=== PATIENT | female | born 1985 | race American Indian/Alaskan Native ===

== ENCOUNTER 2017-06-28 16:31 | Emergency (ER) | payer MEDICAID ==
[2017-06-28 16:40] VITALS: BP 143/73
[2017-06-28] MEDS ORDERED: FUL-GLO OP ONE (21:28)
[2017-06-28] MEDS ORDERED: TETRACAINE 0.5% OU ONE (21:30)
--- NOTE | 2017-06-28 22:07 | XRay Report ---
FINAL REPORT PROCEDURE: XR ORBITS 4+V TECHNIQUE: Four view orbits HISTORY: eye injury COMPARISON: No prior studies are available for comparison. FINDINGS: No fracture. No air-fluid level seen. If symptoms persists recommend CT scan IMPRESSION: No fracture or air-fluid level seen.
--- NOTE | 2017-06-28 22:07 | Emergency Department Report ---
Eye Injury/Foreign Body - HPI Duration: Today Eye Location: Left Severity: Moderate Tetanus Status: Up to Date Eye Symptoms: Eye Pain: Yes, Blurred Vision: Yes, Eye Redness: Yes, Grinding/ Hammering Metal: No, Used Eye Protection: No, Contact Lens Use: No, Recalls Injury: Yes, Photophobia: Yes Other History: Patient 31-year-old -[place] female presents for left eye pain blurred left eye vision s/p " my child struck me in the eye with a toy action figure accidentaly, pain described as burning itching with photobia and blurred vision there is no bleeding no swelling no headache ED Review of Systems ROS: Stated complaint: L EYE INJURY Other details as noted in HPI Constitutional: denies: chills, fever Eyes: eye pain, vision change (blurred left eye pain ). denies: eye discharge ENT: denies: ear pain, throat pain Respiratory: denies: cough, shortness of breath, wheezing Cardiovascular: denies: chest pain, palpitations Endocrine: no symptoms reported Gastrointestinal: denies: abdominal pain, nausea, diarrhea Genitourinary: denies: urgency, dysuria, discharge Musculoskeletal: denies: back pain, joint swelling, arthralgia Skin: denies: rash, lesions Neurological: denies: headache, weakness, paresthesias Psychiatric: denies: anxiety, depression Hematological/Lymphatic: denies: easy bleeding, easy bruising ED Past Medical Hx - Past Medical History Previous Medical History?: Yes Hx Arthritis: Yes Hx Asthma: Yes Additional medical history: anemia, Back pain, LILIANA - Surgical History Past Surgical History?: Yes Additional Surgical History: ovarian cyst removed. - Social History Smoking Status: Never Smoker Substance Use Type: Non Opiate Pain, Prescribed - Medications Home Medications: Home Medications Medication Instructions Recorded Confirmed Last Taken Type traMADol [Ultram] 50 mg PO Q4HR PRN #15 tablet 08/01/13 03/23/16 03/21/16 Rx 100mg Ketorolac [Toradol] 10 mg PO Q6H PRN #20 tablet 03/23/16 Unknown Rx Meloxicam [Mobic] 15 mg PO BID 03/23/16 03/23/16 03/20/16 History 15mg Methocarbamol [Robaxin TAB] 1,500 mg PO TID PRN #30 tab 03/23/16 Unknown Rx Cetirizine HCl [Zyrtec] 10 mg PO DAILY #30 tablet 06/28/17 Unknown Rx Ibuprofen 800 mg PO TID PRN #30 tablet 06/28/17 Unknown Rx Polymyxin B Sulf/Trimethoprim 1 - 2 drop OP Q4H #10 ml 06/28/17 Unknown Rx [Polytrim Eye Drops] Eye Injury Exam - Exam General: Vital signs noted. No distress. Alert and acting appropriately. ED Course Vital Signs 06/28/17 16:35 Temperature 98.6 F Pulse Rate 81 Respiratory 16 Rate Blood Pressure 143/73 O2 Sat by Pulse 99 Oximetry ED Medical Decision Making - Radiology Data no fracture - Medical Decision Making Patient states stuck in the high with plastic action figure 2-year-old today pain described as burning itching with minimal blurred vision the left there is no bleeding no swelling no ecchymosis globe was intact and vital signs PERRLA EOMI mild conjunctivitis exam tetracaine fluorescein Wood's lamp mild corneal abrasion to pupil on 2 mm IOP 16 mmHg via Bud-Pen . Visual acuity 20/40 left eye 20/40 right eye blurred vision resolved with sterile saline irrigation 10 mL plan Polytrim every 3-4 hours while awake Zyrtec by mouth ibuprofen by mouth follow up with ophthalmology patient will call tomorrow to set up appointment will return to ED if symptoms worsen patient verbalizes understanding and agreement with discharge plan patient DC'd home in stable condition at this time. Critical care attestation.: If time is entered above; I have spent that time in minutes in the direct care of this critically ill patient, excluding procedure time. ED Disposition Clinical Impression: Corneal abrasion Qualifiers: Encounter type: initial encounter Laterality: left Qualified Code(s): S05.02XA - Injury of conjunctiva and corneal abrasion without foreign body, left eye, initial encounter Conjunctivitis Qualifiers: Conjunctivitis type: acute Acute conjunctivitis type: unspecified Laterality: left Qualified Code(s): H10.32 - Unspecified acute conjunctivitis, left eye Disposition: DC-01 TO HOME OR SELFCARE Is pt being admited?: No Does the pt Need Aspirin: No Condition: Good Instructions: Corneal Abrasion (ED), Conjunctivitis (ED) Prescriptions: Cetirizine HCl [Zyrtec] 10 mg PO DAILY #30 tablet Ibuprofen 800 mg PO TID PRN #30 tablet PRN Reason: Pain Polymyxin B Sulf/Trimethoprim [Polytrim Eye Drops] 1 - 2 drop OP Q4H #10 ml Referrals: MARY LAWRENCE MD [Staff Physician] - 3-5 Days Forms: Work/School Release Form(ED) Time of Disposition: 22:15
[2017-06-28] MEDS ORDERED: TYLENOL ONE (22:30)
[2017-06-28] MEDS ORDERED: TYLENOL PO ONE (22:30)
--- NOTE | 2017-07-01 10:10 | Emergency Department Report ---
ED General Adult HPI - General Chief complaint: Eye Problems Stated complaint: L EYE INJURY Time Seen by Provider: 06/28/17 21:21 Source: patient, family, EMS Mode of arrival: Ambulatory Limitations: No Limitations - History of Present Illness Severity scale (0 -10): 0 - Related Data Home Medications Medication Instructions Recorded Confirmed Last Taken Meloxicam [Mobic] 15 mg PO BID 03/23/16 03/23/16 03/20/16 15mg Previous Rx's Medication Instructions Recorded Last Taken Type traMADol [Ultram] 50 mg PO Q4HR PRN #15 tablet 08/01/13 03/21/16 Rx 100mg Ketorolac [Toradol] 10 mg PO Q6H PRN #20 tablet 03/23/16 Unknown Rx Methocarbamol [Robaxin TAB] 1,500 mg PO TID PRN #30 tab 03/23/16 Unknown Rx Cetirizine HCl [Zyrtec] 10 mg PO DAILY #30 tablet 06/28/17 Unknown Rx Ibuprofen 800 mg PO TID PRN #30 tablet 06/28/17 Unknown Rx Polymyxin B Sulf/Trimethoprim 1 - 2 drop OP Q4H #10 ml 06/28/17 Unknown Rx [Polytrim Eye Drops] Allergies Allergy/AdvReac Type Severity Reaction Status Date / Time doxycycline Allergy Rash Verified 03/22/16 19:51 seafood Allergy Shortness Uncoded 06/28/17 16:40 of Breath ED Review of Systems ROS: Stated complaint: L EYE INJURY Other details as noted in HPI Constitutional: denies: chills, fever Eyes: eye pain, vision change (blurred left eye pain ). denies: eye discharge ENT: denies: ear pain, throat pain Respiratory: denies: cough, shortness of breath, wheezing Cardiovascular: denies: chest pain, palpitations Endocrine: no symptoms reported Gastrointestinal: denies: abdominal pain, nausea, diarrhea Genitourinary: denies: urgency, dysuria, discharge Musculoskeletal: denies: back pain, joint swelling, arthralgia Skin: denies: rash, lesions Neurological: denies: headache, weakness, paresthesias Psychiatric: denies: anxiety, depression Hematological/Lymphatic: denies: easy bleeding, easy bruising ED Past Medical Hx - Past Medical History Previous Medical History?: Yes Hx Arthritis: Yes Hx Asthma: Yes Additional medical history: anemia, Back pain, LILIANA - Surgical History Past Surgical History?: Yes Additional Surgical History: ovarian cyst removed. - Social History Smoking Status: Never Smoker Substance Use Type: Non Opiate Pain, Prescribed - Medications Home Medications: Home Medications Medication Instructions Recorded Confirmed Last Taken Type traMADol [Ultram] 50 mg PO Q4HR PRN #15 tablet 08/01/13 03/23/16 03/21/16 Rx 100mg Ketorolac [Toradol] 10 mg PO Q6H PRN #20 tablet 03/23/16 Unknown Rx Meloxicam [Mobic] 15 mg PO BID 03/23/16 03/23/16 03/20/16 History 15mg Methocarbamol [Robaxin TAB] 1,500 mg PO TID PRN #30 tab 03/23/16 Unknown Rx Cetirizine HCl [Zyrtec] 10 mg PO DAILY #30 tablet 06/28/17 Unknown Rx Ibuprofen 800 mg PO TID PRN #30 tablet 06/28/17 Unknown Rx Polymyxin B Sulf/Trimethoprim 1 - 2 drop OP Q4H #10 ml 06/28/17 Unknown Rx [Polytrim Eye Drops] ED Physical Exam - General Limitations: No Limitations General appearance: alert, in no apparent distress - Head Head exam: Present: atraumatic, normocephalic - Eye Eye exam: Present: PERRL, EOMI, conjunctival injection, periorbital swelling, periorbital tenderness - Expanded Eye Exam Expanded Eyelids: Erythema: Left, Swelling: Left Pupils: Regular, Round: Bilateral, Reactive: Bilateral Sclera/Conjunctival: Injection: Left Anterior chamber: Normal Inspection: Bilateral Posterior chamber: Deferred: Bilateral Visual acuity (R) = 20/: 40 Visual acuity (L) = 20/: 40 With correction: No IOP (R) in mmH IOP (L) in mmH IOP measured with: Tonopen - ENT ENT exam: Present: mucous membranes moist - Neck Neck exam: Present: normal inspection - Respiratory Respiratory exam: Present: normal lung sounds bilaterally. Absent: respiratory distress - Cardiovascular Cardiovascular Exam: Present: regular rate, normal rhythm. Absent: systolic murmur, diastolic murmur, rubs, gallop - GI/Abdominal GI/Abdominal exam: Present: soft, normal bowel sounds - Rectal Rectal exam: Present: deferred - Extremities Exam Extremities exam: Present: normal inspection - Back Exam Back exam: Present: normal inspection - Neurological Exam Neurological exam: Present: alert, oriented X3 - Psychiatric Psychiatric exam: Present: normal affect, normal mood - Skin Skin exam: Present: warm, dry, intact, normal color. Absent: rash ED Course Vital Signs 06/28/17 16:35 Temperature 98.6 F Pulse Rate 81 Respiratory 16 Rate Blood Pressure 143/73 O2 Sat by Pulse 99 Oximetry Critical care attestation.: If time is entered above; I have spent that time in minutes in the direct care of this critically ill patient, excluding procedure time. ED Disposition Clinical Impression: Corneal abrasion, Conjunctivitis Disposition: DC- TO HOME OR SELFCARE Condition: Good Instructions: Conjunctivitis (ED), Corneal Abrasion (ED) Prescriptions: Cetirizine HCl [Zyrtec] 10 mg PO DAILY #30 tablet Ibuprofen 800 mg PO TID PRN #30 tablet PRN Reason: Pain Polymyxin B Sulf/Trimethoprim [Polytrim Eye Drops] 1 - 2 drop OP Q4H #10 ml Referrals: MARY LAWRENCE MD [Staff Physician] - 3-5 Days Forms: Work/School Release Form(ED)
== END 2017-06-28 22:30 | disposition home or self-care (01) ==
LOC: ED 16:31
DX: S05.02XA Injury of conjunctiva and corneal abrasion without foreign body, left eye, initial encounter (principal); H10.32 Unspecified acute conjunctivitis, left eye; W22.8XXA Striking against or struck by other objects, initial encounter; Y93.89 Activity, other specified; Y92.89 Other specified places as the place of occurrence of the external cause; Y99.8 Other external cause status
CPT/HCPCS: 70200; 99284

== ENCOUNTER 2017-12-08 15:51 | Outpatient (CLI) | payer OTHER ==
--- NOTE | 2017-12-08 19:32 | XRay Report ---
FINAL REPORT PROCEDURE: Lumbar spine. TECHNIQUE: Three views. HISTORY: Back pain. COMPARISON: No prior studies are available for comparison. FINDINGS: The lumbar vertebrae have normal height and alignment. There are no fractures. There is no spondylolisthesis. The disc spaces are well maintained. The sacrum and sacroiliac joints appear normal. IMPRESSION: Normal study.
--- NOTE | 2017-12-09 00:09 | XRay Report ---
FINAL REPORT EXAM: XR HIP 2-3V RT HISTORY: hIP PAIN COMPARISON: None available. FINDINGS: Two views of the pelvis and right hip obtained. Pelvic ring is intact. Bilateral hip and SI joint spaces are preserved. No acute fracture dislocation. IMPRESSION: No acute bony abnormality.
== END 2017-12-08 15:52 | disposition home or self-care (01) ==
LOC: XRAY 15:51
PROVIDERS: ATTEND Internal Medicine
DX: Z02.71 Encounter for disability determination (principal); M25.551 Pain in right hip; M54.5 Low back pain; M19.90 Unspecified osteoarthritis, unspecified site; J45.909 Unspecified asthma, uncomplicated
CPT/HCPCS: 72100

== ENCOUNTER 2017-12-21 22:14 | Emergency (ER) | payer MEDICAID, OTHER ==
[2017-12-22 01:53] VITALS: BP 111/58
--- NOTE | 2017-12-22 05:07 | Emergency Department Report ---
- General Chief Complaint: Skin/Abscess/Foreign Body Stated Complaint: NAVEL DRAINAGE/RASH Time Seen by Provider: 12/22/17 04:04 Source: patient Mode of arrival: Ambulatory Limitations: No Limitations - History of Present Illness Initial Comments: Patient is a 32-year-old female presents for rash irritation to her belly button states been scratching it and now is getting red, states clear drainage, no fever no chills no n/v Onset/Timin -: month(s) Location: abdomen Place: home Patient Tetanus UTD: Yes Associated Symptoms: pain. denies: loss of feeling/numbness, suspect foreign body present, unable to move injured part, fever - Related Data Home Medications Medication Instructions Recorded Confirmed Last Taken Meloxicam [Mobic] 15 mg PO BID 03/23/16 03/23/16 03/20/16 15mg Previous Rx's Medication Instructions Recorded Last Taken Type traMADol [Ultram] 50 mg PO Q4HR PRN #15 tablet 08/01/13 03/21/16 Rx 100mg Ketorolac [Toradol] 10 mg PO Q6H PRN #20 tablet 03/23/16 Unknown Rx Methocarbamol [Robaxin TAB] 1,500 mg PO TID PRN #30 tab 03/23/16 Unknown Rx Cetirizine HCl [Zyrtec] 10 mg PO DAILY #30 tablet 06/28/17 Unknown Rx Ibuprofen 800 mg PO TID PRN #30 tablet 06/28/17 Unknown Rx Polymyxin B Sulf/Trimethoprim 1 - 2 drop OP Q4H #10 ml 06/28/17 Unknown Rx [Polytrim Eye Drops] Ibuprofen 800 mg PO TID PRN #30 tablet 12/22/17 Unknown Rx Sulfamethoxazole/Trimethoprim 1 each PO 12 #20 tablet 12/22/17 Unknown Rx [Bactrim Ds Tablet] Allergies Allergy/AdvReac Type Severity Reaction Status Date / Time doxycycline Allergy Rash Verified 03/22/16 19:51 seafood Allergy Shortness Uncoded 06/28/17 16:40 of Breath ED Review of Systems ROS: Stated complaint: NAVEL DRAINAGE/RASH Other details as noted in HPI Constitutional: denies: chills, fever Eyes: denies: eye pain, eye discharge, vision change ENT: denies: ear pain, throat pain Respiratory: denies: cough, shortness of breath, wheezing Cardiovascular: denies: chest pain, palpitations Endocrine: no symptoms reported Gastrointestinal: other (rash site pain ). denies: abdominal pain, nausea, vomiting, diarrhea, constipation, hematemesis, hematochezia Genitourinary: denies: urgency, dysuria, discharge Musculoskeletal: denies: back pain, joint swelling, arthralgia Skin: rash (umbillical) ED Past Medical Hx - Past Medical History Previous Medical History?: Yes Hx Arthritis: Yes Hx Asthma: Yes Additional medical history: anemia, Back pain, LILIANA. 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 biopsy of liver - Social History Smoking Status: Never Smoker Substance Use Type: Alcohol - Medications Home Medications: Home Medications Medication Instructions Recorded Confirmed Last Taken Type traMADol [Ultram] 50 mg PO Q4HR PRN #15 tablet 08/01/13 03/23/16 03/21/16 Rx 100mg Ketorolac [Toradol] 10 mg PO Q6H PRN #20 tablet 03/23/16 Unknown Rx Meloxicam [Mobic] 15 mg PO BID 03/23/16 03/23/16 03/20/16 History 15mg Methocarbamol [Robaxin TAB] 1,500 mg PO TID PRN #30 tab 03/23/16 Unknown Rx Cetirizine HCl [Zyrtec] 10 mg PO DAILY #30 tablet 06/28/17 Unknown Rx Ibuprofen 800 mg PO TID PRN #30 tablet 06/28/17 Unknown Rx Polymyxin B Sulf/Trimethoprim 1 - 2 drop OP Q4H #10 ml 06/28/17 Unknown Rx [Polytrim Eye Drops] Ibuprofen 800 mg PO TID PRN #30 tablet 12/22/17 Unknown Rx Sulfamethoxazole/Trimethoprim 1 each PO 12 #20 tablet 12/22/17 Unknown Rx [Bactrim Ds Tablet] ED Physical Exam - General Limitations: No Limitations General appearance: alert, in no apparent distress - Head Head exam: Present: atraumatic, normocephalic - Eye Eye exam: Present: normal appearance - ENT ENT exam: Present: mucous membranes moist - Neck Neck exam: Present: normal inspection - Respiratory Respiratory exam: Present: normal lung sounds bilaterally. Absent: respiratory distress - Cardiovascular Cardiovascular Exam: Present: regular rate, normal rhythm. Absent: systolic murmur, diastolic murmur, rubs, gallop - GI/Abdominal GI/Abdominal exam: Present: soft, tenderness (cellulitis site approx 1 cm circular with mild cellulitis ), normal bowel sounds. Absent: distended, guarding, rebound, rigid, hyperactive bowel sounds, hypoactive bowel sounds, organomegaly, mass, bruit, pulsatile mass, hernia - Rectal Rectal exam: Present: deferred - Extremities Exam Extremities exam: Present: normal inspection - Back Exam Back exam: Present: normal inspection, full ROM, tenderness. Absent: CVA tenderness (R), CVA tenderness (L), muscle spasm, paraspinal tenderness, vertebral tenderness, rash noted - Neurological Exam Neurological exam: Present: alert, oriented X3 - Psychiatric Psychiatric exam: Present: normal affect, normal mood - Skin Skin exam: Present: warm, dry, intact, normal color. Absent: rash ED Course Vital Signs 12/21/17 12/22/17 22:55 01:51 Temperature 98.4 F 97.9 F Pulse Rate 74 73 Respiratory 18 12 Rate Blood Pressure 101/71 111/58 O2 Sat by Pulse 99 98 Oximetry ED Medical Decision Making - Medical Decision Making cellulitis abd wall, plan: bactrim, mupuricin ont follow up with pcp in 2-3 days for site check. Critical care attestation.: If time is entered above; I have spent that time in minutes in the direct care of this critically ill patient, excluding procedure time. ED Disposition Clinical Impression: Abdominal wall cellulitis Disposition: DC- TO HOME OR SELFCARE Is pt being admited?: No Does the pt Need Aspirin: No Condition: Good Instructions: Abscess (ED) Prescriptions: Ibuprofen 800 mg PO TID PRN #30 tablet PRN Reason: pain Sulfamethoxazole/Trimethoprim [Bactrim Ds Tablet] 1 each PO 12 #20 tablet Referrals: PRIMARY CARE, [Primary Care Provider] - 3-5 Days Forms: Work/School Release Form(ED) Time of Disposition: 05:15
== END 2017-12-22 05:25 | disposition home or self-care (01) ==
LOC: ED 22:14
DX: L03.311 Cellulitis of abdominal wall (principal); M19.90 Unspecified osteoarthritis, unspecified site; J45.909 Unspecified asthma, uncomplicated; Z86.2 Personal history of diseases of the blood and blood-forming organs and certain disorders involving the immune mechanism; Z91.013 Allergy to seafood; Z88.1 Allergy status to other antibiotic agents; Z79.899 Other long term (current) drug therapy
CPT/HCPCS: 99282

== ENCOUNTER 2018-01-19 09:12 | Emergency (ER) | payer MEDICAID, OTHER ==
--- NOTE | 2018-01-19 10:59 | Emergency Department Report ---
Minor Respiratory - HPI Chief Complaint: Medical Clearance Stated Complaint: NAUSEA/SOB Time Seen by Provider: 01/19/18 10:41 Duration: 3 Days Pain Location: Nose Severity: moderate Minor Respiratory: Yes Rhinorrhea, Yes Able to Tolerate Fluids, Yes Cough, No Sore Throat, No Ear Pain, No Sick Contacts, No Hemoptysis, No Chest Pain, No Shortness of Breath, No Fever Other History: This is a 32-year-old -[place] female that presents with nausea, congestion, rhinorrhea, and sore throat for 2-3 days. Patient states everyone in the family are having similar symptoms from being exposed to rat poison at home. Patient states they were instructed to leave for 2 weeks so home could be treated for rat infestation. When they returned home the fumes caused upper respiratory symptoms. Patient denies taking anything OTC for symptom relief. She denies nausea or vomiting, ingesting of pesticide, chest pain, and diarrhea. ED Review of Systems ROS: Stated complaint: NAUSEA/SOB Other details as noted in HPI Constitutional: denies: chills, fever ENT: congestion. denies: ear pain, throat pain, epistaxis Respiratory: cough. denies: shortness of breath, wheezing Cardiovascular: denies: chest pain, palpitations Gastrointestinal: nausea. denies: abdominal pain, diarrhea Skin: denies: rash, lesions Neurological: denies: headache, weakness, paresthesias Psychiatric: denies: anxiety, depression ED Past Medical Hx - Past Medical History Hx Arthritis: Yes Hx Asthma: Yes Additional medical history: anemia, Back pain, LILIANA. 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 biopsy of liver - Social History Smoking Status: Never Smoker Substance Use Type: None - Medications Home Medications: Home Medications Medication Instructions Recorded Confirmed Last Taken Type traMADol [Ultram] 50 mg PO Q4HR PRN #15 tablet 08/01/13 03/23/16 03/21/16 Rx 100mg Ketorolac [Toradol] 10 mg PO Q6H PRN #20 tablet 03/23/16 Unknown Rx Meloxicam [Mobic] 15 mg PO BID 03/23/16 03/23/16 03/20/16 History 15mg Methocarbamol [Robaxin TAB] 1,500 mg PO TID PRN #30 tab 03/23/16 Unknown Rx Cetirizine HCl [Zyrtec] 10 mg PO DAILY #30 tablet 06/28/17 Unknown Rx Ibuprofen 800 mg PO TID PRN #30 tablet 06/28/17 Unknown Rx Polymyxin B Sulf/Trimethoprim 1 - 2 drop OP Q4H #10 ml 06/28/17 Unknown Rx [Polytrim Eye Drops] Ibuprofen 800 mg PO TID PRN #30 tablet 12/22/17 Unknown Rx Mupirocin [Bactroban 2% OINT] 1 applic TP TID 10 Days #1 tube 12/22/17 Unknown Rx Sulfamethoxazole/Trimethoprim 1 each PO 12 #20 tablet 12/22/17 Unknown Rx [Bactrim Ds Tablet] Cetirizine HCl [Zyrtec] 10 mg PO DAILY #30 tablet 01/19/18 Unknown Rx Fluticasone [Flonase] 1 spray NS QDAY #1 bottle 01/19/18 Unknown Rx Ondansetron [Zofran Odt] 4 mg PO TID PRN #9 tab.rapdis 01/19/18 Unknown Rx Minor Respiratory Exam - Exam General: Vital signs noted. No distress. Alert and acting appropriately. HEENT: Yes Moist Mucous Membranes, Yes Rhinorrhea (turbinates congested with clear discharge), No Pharyngeal Erythema, No Pharyngeal Exudates, No Conjuctival Injection, No Frontal Tenderness, No Maxillary Tenderness Ear: Neither TM Bulge, Neither TM Erythema, Neither EAC Pain, Neither EAC Discharge Neck: Yes Supple, No Adenopathy Lungs: Yes Good Air Exchange, Yes Cough, No Wheezes, No Ronchi, No Stridor, No Labored Respirations, No Retractions, No Use of Accessory Muscles, No Other Abnormal Lung Sounds Heart: Yes Regular, No Murmur Abdomen: Yes Normal Bowel Sounds, No Tenderness, No Peritoneal Signs Skin: No Rash, No Edema Neurologic: Alert and oriented, no deficits. Musculoskeletal: Unremarkable. ED Course Vital Signs 01/19/18 09:18 Temperature 98.7 F Pulse Rate 80 Respiratory 18 Rate Blood Pressure 130/91 O2 Sat by Pulse 98 Oximetry ED Medical Decision Making - Medical Decision Making Patient examined by me and stable in fast track. No distress noted. Vitals normal. Contacted poison control who advised to patient obtain name of pesticide sprayed in apartment and to move out. Contact poison control. Patient will be treated with supportive treatment. Discharged home stable. Start supportive care for URI. Continue giving Tylenol or ibuprofen for fever control. Follow up with Primary Care Provider in 2-3 days. Critical care attestation.: If time is entered above; I have spent that time in minutes in the direct care of this critically ill patient, excluding procedure time. ED Disposition Clinical Impression: Exposure to pesticide, Nausea alone Upper respiratory infection Qualifiers: URI type: acute nasopharyngitis (common cold) Qualified Code(s): J00 - Acute nasopharyngitis [common cold] Disposition: TO HOME OR SELFCARE Is pt being admited?: No Does the pt Need Aspirin: No Condition: Stable Instructions: Viral Syndrome (ED), Upper Respiratory Infection (ED) Additional Instructions: Important to remove self from home to avoid reoccurrence of symptoms. Find out the name of pesticide sprayed in home and follow up with poison control. Increase fluid intake and rest. Wash hands frequently. Continue taking tylenol or ibuprofen to control fever. F/U with primary care provider. Return to ER if fever, SOB, or difficulty breathing after 48 hours of supportive care. Prescriptions: Cetirizine HCl [Zyrtec] 10 mg PO DAILY #30 tablet Fluticasone [Flonase] 1 spray NS QDAY #1 bottle Ondansetron [Zofran Odt] 4 mg PO TID PRN #9 tab.rapdis PRN Reason: Nausea Referrals: [facility] [Outside] - 3-5 Days [facility] [Outside] - 3-5 Days [facility] [Outside] - 3-5 Days Time of Disposition: 11:49 Print Language: YORUBA
[2018-01-19 12:37] VITALS: BP 130/86
== END 2018-01-19 12:23 | disposition home or self-care (01) ==
LOC: ED 09:12
DX: J06.9 Acute upper respiratory infection, unspecified (principal); J00 Acute nasopharyngitis [common cold]; R11.0 Nausea; M19.90 Unspecified osteoarthritis, unspecified site; J45.909 Unspecified asthma, uncomplicated; Z77.29 Contact with and (suspected) exposure to other hazardous substances; Z88.1 Allergy status to other antibiotic agents; Z91.013 Allergy to seafood
CPT/HCPCS: 99282

== ENCOUNTER 2018-10-28 13:09 | Emergency (ER) | payer MEDICAID ==
--- NOTE | 2018-10-28 13:21 | Event Note ---
ED Screening Note ED Screening Note: saw pcp yesterday told she was and had uti sent home on no meds she has no idea when her LMP was called ob and the nurse told her to come here she has no vag dc or bleeding she has suprapubic pain and frequency rx vit D motrin PPI pmh gerd This initial assessment/diagnostic orders/clinical plan/treatment(s) is/are subject to change based on patients health status, clinical progression and re- assessment by fellow clinical providers in the ED. Further treatment and workup at subsequent clinical providers discretion. Patient/guardian urged not to elope from the ED as their condition may be serious if not clinically assessed and managed. Initial orders include: ua labs Dony Phelps NP
[2018-10-28 14:07] LABS: Hematocrit 34.7 % (30.3-42.9); Mean Corpuscular HGB Conc 32 % (30-34); Platelet Count 532 K/mm3 (140-440); Red Blood Count 4.97 M/mm3 (3.65-5.03); Red Cell Distribution Width 18.3 % (13.2-15.2)
[2018-10-28 14:09] LABS: Mean Corpuscular Volume 70 fl (79-97)
[2018-10-28 14:25] LABS: BUN/Creatinine Ratio 16; Blood Urea Nitrogen 8 mg/dL (7-17); Calcium 9.8 mg/dL (8.4-10.2); Hemolysis Index 0
[2018-10-28 15:06] LABS: Bacteria,Urine 1+ /HPF (Negative); Bilirubin,Urine NEG (Negative); Blood,Urine SM (Negative); Color,Urine Yellow (Yellow); Mucus,Urine 1+ /HPF; Urobilinogen,Urine < 2.0 mg/dL (<2.0)
--- NOTE | 2018-10-28 16:21 | Emergency Department Report ---
ED General Adult HPI - General Chief complaint: Urogenital-Female Stated complaint: /STOMACH PAIN/UTI Time Seen by Provider: 10/28/18 13:17 Source: patient Mode of arrival: Ambulatory Limitations: No Limitations - History of Present Illness Initial comments: A 33-year-old morbidly obese F [place] female presents to the emergency department complaining of having some pelvic/genitourinary irritation. States she saw her primary care doctor on yesterday and he had advisor. She had an unexpected positive test and an association with a urinary tract infection. For whatever reason, the primary care doctor. Advised patient that they did not wish to treat the urinary tract infection will follow-up with [facility] for treatment. She tended to call the [facility] [employer] [facility] earlier this morning and advisor to come to the ER for evaluation and management. She reports not having a period since sometime in August, but is not quite sure of the exact time. She denies any fever, chills, sweats, nausea or vomiting but does have some increased urinary urgency decreased urinary production and some burning to the suprapubic region. She reports no headache, no hematuria, no hematemesis, no hematochezia. She denies trauma Radiation: non-radiation Severity scale (0 -10): 5 Quality: burning Consistency: constant Improves with: none Worsens with: none Associated Symptoms: denies: confusion, cough, fever/chills, headaches, loss of appetite, malaise, nausea/vomiting, rash, shortness of breath, syncope, weakness - Related Data Home Medications Medication Instructions Recorded Confirmed Last Taken Meloxicam [Mobic] 15 mg PO BID 03/23/16 03/23/16 03/20/16 15mg Previous Rx's Medication Instructions Recorded Last Taken Type traMADol [Ultram] 50 mg PO Q4HR PRN #15 tablet 08/01/13 03/21/16 Rx 100mg Ketorolac [Toradol] 10 mg PO Q6H PRN #20 tablet 03/23/16 Unknown Rx methOCARBAMOL [Robaxin TAB] 1,500 mg PO TID PRN #30 tab 03/23/16 Unknown Rx Cetirizine HCl [Zyrtec] 10 mg PO DAILY #30 tablet 06/28/17 Unknown Rx Ibuprofen 800 mg PO TID PRN #30 tablet 06/28/17 Unknown Rx Polymyxin B Sulf/Trimethoprim 1 - 2 drop OP Q4H #10 ml 06/28/17 Unknown Rx [Polytrim Eye Drops] Ibuprofen [Ibuprofen 800] 800 mg PO TID PRN #30 tablet 12/22/17 Unknown Rx Mupirocin [Bactroban 2% OINT] 1 applic TP TID 10 Days #1 tube 12/22/17 Unknown Rx Sulfamethoxazole/Trimethoprim 1 each PO 12 #20 tablet 12/22/17 Unknown Rx [Bactrim Ds Tablet] Cetirizine HCl [Zyrtec 10mg tab] 10 mg PO DAILY #30 tablet 01/19/18 Unknown Rx Fluticasone [Flonase] 1 spray NS QDAY #1 bottle 01/19/18 Unknown Rx Ondansetron [Zofran Odt] 4 mg PO TID PRN #9 tab.rapdis 01/19/18 Unknown Rx Nitrofurantoin Towns/M-Cryst 100 mg PO Q12HR #20 capsule 10/28/18 Unknown Rx [Macrobid CAP] Phenazopyridine [Pyridium] 200 mg PO BID PRN #10 tab 10/28/18 Unknown Rx Allergies Allergy/AdvReac Type Severity Reaction Status Date / Time doxycycline Allergy Rash Verified 10/28/18 13:16 seafood Allergy Shortness Uncoded 06/28/17 16:40 of Breath ED Review of Systems ROS: Stated complaint: /STOMACH PAIN/UTI Other details as noted in HPI Constitutional: denies: chills, fever Eyes: denies: eye pain, eye discharge, vision change ENT: denies: ear pain, throat pain Respiratory: denies: cough, shortness of breath, wheezing Cardiovascular: denies: chest pain, palpitations Endocrine: no symptoms reported Gastrointestinal: denies: abdominal pain, nausea, diarrhea Genitourinary: urgency, dysuria, hematuria. denies: discharge, abnormal menses, dyspareunia Musculoskeletal: denies: back pain, joint swelling, arthralgia Skin: denies: rash, lesions Neurological: denies: headache, weakness, paresthesias Psychiatric: denies: anxiety, depression Hematological/Lymphatic: denies: easy bleeding, easy bruising ED Past Medical Hx - Past Medical History Previous Medical History?: Yes Hx Arthritis: Yes Hx Asthma: Yes Additional medical history: anemia, Back pain, LILIANA. 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 biopsy of liver - Social History Smoking Status: Never Smoker Substance Use Type: None - Medications Home Medications: Home Medications Medication Instructions Recorded Confirmed Last Taken Type traMADol [Ultram] 50 mg PO Q4HR PRN #15 tablet 08/01/13 03/23/16 03/21/16 Rx 100mg Ketorolac [Toradol] 10 mg PO Q6H PRN #20 tablet 03/23/16 Unknown Rx Meloxicam [Mobic] 15 mg PO BID 03/23/16 03/23/16 03/20/16 History 15mg methOCARBAMOL [Robaxin TAB] 1,500 mg PO TID PRN #30 tab 03/23/16 Unknown Rx Cetirizine HCl [Zyrtec] 10 mg PO DAILY #30 tablet 06/28/17 Unknown Rx Ibuprofen 800 mg PO TID PRN #30 tablet 06/28/17 Unknown Rx Polymyxin B Sulf/Trimethoprim 1 - 2 drop OP Q4H #10 ml 06/28/17 Unknown Rx [Polytrim Eye Drops] Ibuprofen [Ibuprofen 800] 800 mg PO TID PRN #30 tablet 12/22/17 Unknown Rx Mupirocin [Bactroban 2% OINT] 1 applic TP TID 10 Days #1 tube 12/22/17 Unknown Rx Sulfamethoxazole/Trimethoprim 1 each PO 12 #20 tablet 12/22/17 Unknown Rx [Bactrim Ds Tablet] Cetirizine HCl [Zyrtec 10mg tab] 10 mg PO DAILY #30 tablet 01/19/18 Unknown Rx Fluticasone [Flonase] 1 spray NS QDAY #1 bottle 01/19/18 Unknown Rx Ondansetron [Zofran Odt] 4 mg PO TID PRN #9 tab.rapdis 01/19/18 Unknown Rx Nitrofurantoin Towns/M-Cryst 100 mg PO Q12HR #20 capsule 10/28/18 Unknown Rx [Macrobid CAP] Phenazopyridine [Pyridium] 200 mg PO BID PRN #10 tab 10/28/18 Unknown Rx ED Physical Exam - General Limitations: No Limitations General appearance: alert, in no apparent distress - Head Head exam: Present: atraumatic, normocephalic - Eye Eye exam: Present: normal appearance, PERRL, EOMI Pupils: Present: normal accommodation - ENT ENT exam: Present: normal exam, normal orophraynx, mucous membranes moist, TM's normal bilaterally - Neck Neck exam: Present: normal inspection, full ROM. Absent: tenderness, lymphadenopathy - Respiratory Respiratory exam: Present: normal lung sounds bilaterally. Absent: respiratory distress, wheezes, rales, rhonchi, chest wall tenderness, accessory muscle use, decreased breath sounds - Cardiovascular Cardiovascular Exam: Present: regular rate, normal rhythm. Absent: systolic murmur, diastolic murmur, rubs, gallop - GI/Abdominal GI/Abdominal exam: Present: soft, normal bowel sounds - Extremities Exam Extremities exam: Present: normal inspection - Back Exam Back exam: Present: normal inspection - Neurological Exam Neurological exam: Present: alert, oriented X3 - Psychiatric Psychiatric exam: Present: normal affect, normal mood - Skin Skin exam: Present: warm, dry, intact, normal color. Absent: rash ED Course Vital Signs 10/28/18 13:11 Temperature 98 F Pulse Rate 82 Respiratory 18 Rate Blood Pressure 110/63 [Right] O2 Sat by Pulse 99 Oximetry ED Medical Decision Making - Lab Data Result diagrams: 10/28/18 13:49 10/28/18 13:49 - Medical Decision Making 33-year-old female reports to the report of a positive test as [place] with the serum hCG. Provided with a copy of her serum hCG and discussed the findings. She was a little bit all. She is alert also reluctant the serum hCG is sure her request a ultrasound to confirm. Advised she should follow up with primary care provider was one-time daycare ultrasound and refer her for ultrasound was not indicated at this present time. Provided her symptomology pattern and negative hCG studies. Currently she reports no vaginal discharge or any vaginal bleeding. Laboratory data disappoint her urinary tract infection which she is being given anti-biotics for treatment. Critical care attestation.: If time is entered above; I have spent that time in minutes in the direct care of this critically ill patient, excluding procedure time. ED Disposition Clinical Impression: Negative test, UTI (urinary tract infection) Disposition: TO HOME OR SELFCARE Is pt being admited?: No Does the pt Need Aspirin: No Condition: Stable Instructions: Phenazopyridine (By mouth), Urinary Tract Infection in Women (ED) Additional Instructions: Initial [place] primary care provider. I have given her copy of-year-old serum hCG results. Laboratory data doesn't support a urinary tract infection. As you previous. The had mentioned, we will cover this with the provider anabiotic's should follow up with primary care provider for reevaluation of urinary tract infection and further management of her pelvic discomfort. Prescriptions: Nitrofurantoin Towns/M-Cryst [Macrobid CAP] 100 mg PO Q12HR #20 capsule Phenazopyridine [Pyridium] 200 mg PO BID PRN #10 tab PRN Reason: dysuria Referrals: POP GILLIS MD [Primary Care Provider] - 3-5 Days
[2018-10-28 16:42] VITALS: BP 118/72
== END 2018-10-28 16:43 | disposition home or self-care (01) ==
LOC: ED 13:09
DX: N39.0 Urinary tract infection, site not specified (principal); M19.90 Unspecified osteoarthritis, unspecified site; J45.909 Unspecified asthma, uncomplicated; Z98.890 Other specified postprocedural states; Z88.1 Allergy status to other antibiotic agents; Z91.013 Allergy to seafood
CPT/HCPCS: 36415; 80048; 81001; 84702; 85027; 86900; 86901; 87076; 87086; 87186

== ENCOUNTER 2019-01-17 08:08 | Emergency (ER) | payer MEDICAID ==
[2019-01-17 08:20] VITALS: BP 110/70
[2019-01-17 09:23] LABS: Bilirubin,Urine NEG (Negative); Blood,Urine NEG (Negative); Color,Urine Yellow (Yellow); Mucus,Urine 2+ /HPF; Protein,Urine <15 mg/dL mg/dL (Negative); Urobilinogen,Urine < 2.0 mg/dL (<2.0)
[2019-01-17 09:26] LABS: HCG Qualitative,Urine Negative (Negative)
--- NOTE | 2019-01-17 10:15 | Emergency Department Report ---
ED Fall HPI - General Chief Complaint: Fall Stated Complaint: FALL INJURY/BALANCE OFF Time Seen by Provider: 01/17/19 10:07 Source: patient Mode of arrival: Ambulatory - History of Present Illness Initial Comments: Patient is 33 years old female with no significant past medical history except for arthritis. Patient presented to the ER complaining of lower back pain, abdominal pain, right hand pain and bilateral shoulder pain. Patient stated that she fell last night coming down a stair. Patient denied any loss of consciousness, neck pain, chest pain or any other extremity pain. MD Complaint: fall -: Sudden, Last night Fall From: down stairs (#) (3) Fall Witnessed: yes, by family Place Fall Occurred: home Loss of Consciousness: none Prolonged Down Time?: no Symptoms Prior to Fall: none Location: back, abdomen Location - Extremities: Left: Shoulder, Right: Shoulder, Hand Severity: moderate Severity scale (0 -10): 4 Quality: sharp Context: tripped/slipped Associated Symptoms: denies - Related Data Home Medications Medication Instructions Recorded Confirmed Last Taken Meloxicam [Mobic] 15 mg PO BID 03/23/16 03/23/16 03/20/16 15mg Previous Rx's Medication Instructions Recorded Last Taken Type traMADol [Ultram] 50 mg PO Q4HR PRN #15 tablet 08/01/13 03/21/16 Rx 100mg Ketorolac [Toradol] 10 mg PO Q6H PRN #20 tablet 03/23/16 Unknown Rx methOCARBAMOL [Robaxin TAB] 1,500 mg PO TID PRN #30 tab 03/23/16 Unknown Rx Cetirizine HCl [Zyrtec] 10 mg PO DAILY #30 tablet 06/28/17 Unknown Rx Ibuprofen 800 mg PO TID PRN #30 tablet 06/28/17 Unknown Rx Polymyxin B Sulf/Trimethoprim 1 - 2 drop OP Q4H #10 ml 06/28/17 Unknown Rx [Polytrim Eye Drops] Ibuprofen [Ibuprofen 800] 800 mg PO TID PRN #30 tablet 12/22/17 Unknown Rx Mupirocin [Bactroban 2% OINT] 1 applic TP TID 10 Days #1 tube 12/22/17 Unknown Rx Sulfamethoxazole/Trimethoprim 1 each PO 12 #20 tablet 12/22/17 Unknown Rx [Bactrim Ds Tablet] Cetirizine HCl [Zyrtec 10mg tab] 10 mg PO DAILY #30 tablet 01/19/18 Unknown Rx Fluticasone [Flonase] 1 spray NS QDAY #1 bottle 01/19/18 Unknown Rx Ondansetron [Zofran Odt] 4 mg PO TID PRN #9 tab.rapdis 01/19/18 Unknown Rx Nitrofurantoin Petroleum/M-Cryst 100 mg PO Q12HR #20 capsule 10/28/18 Unknown Rx [Macrobid CAP] Phenazopyridine [Pyridium] 200 mg PO BID PRN #10 tab 10/28/18 Unknown Rx Allergies Allergy/AdvReac Type Severity Reaction Status Date / Time doxycycline Allergy Rash Verified 10/28/18 13:16 seafood Allergy Shortness Uncoded 06/28/17 16:40 of Breath ED Review of Systems ROS: Stated complaint: FALL INJURY/BALANCE OFF Other details as noted in HPI Comment: All other systems reviewed and negative Constitutional: denies: chills, fever Respiratory: denies: cough, orthopnea, shortness of breath, SOB with exertion, wheezing Cardiovascular: denies: chest pain, palpitations Gastrointestinal: abdominal pain. denies: nausea, vomiting, diarrhea, constipat ion, hematemesis, melena, hematochezia Musculoskeletal: back pain Neurological: denies: headache, weakness, numbness, paresthesias, confusion, abnormal gait ED Past Medical Hx - Past Medical History Previous Medical History?: Yes Hx Arthritis: Yes Hx Asthma: Yes Additional medical history: anemia, Back pain, LILIANA. 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 carpal tunnel - Surgical History Past Surgical History?: Yes Additional Surgical History: ovarian cyst removed. biopsy of liver - Social History Smoking Status: Never Smoker Substance Use Type: None - Medications Home Medications: Home Medications Medication Instructions Recorded Confirmed Last Taken Type traMADol [Ultram] 50 mg PO Q4HR PRN #15 tablet 08/01/13 03/23/16 03/21/16 Rx 100mg Ketorolac [Toradol] 10 mg PO Q6H PRN #20 tablet 03/23/16 Unknown Rx Meloxicam [Mobic] 15 mg PO BID 03/23/16 03/23/16 03/20/16 History 15mg methOCARBAMOL [Robaxin TAB] 1,500 mg PO TID PRN #30 tab 10/24/16 Unknown Rx Cetirizine HCl [Zyrtec] 10 mg PO DAILY #30 tablet 06/28/17 Unknown Rx Ibuprofen 800 mg PO TID PRN #30 tablet 06/28/17 Unknown Rx Polymyxin B Sulf/Trimethoprim 1 - 2 drop OP Q4H #10 ml 06/28/17 Unknown Rx [Polytrim Eye Drops] Ibuprofen [Ibuprofen 800] 800 mg PO TID PRN #30 tablet 12/22/17 Unknown Rx Mupirocin [Bactroban 2% OINT] 1 applic TP TID 10 Days #1 tube 12/22/17 Unknown Rx Sulfamethoxazole/Trimethoprim 1 each PO 12 #20 tablet 12/22/17 Unknown Rx [Bactrim Ds Tablet] Cetirizine HCl [Zyrtec 10mg tab] 10 mg PO DAILY #30 tablet 01/19/18 Unknown Rx Fluticasone [Flonase] 1 spray NS QDAY #1 bottle 01/19/18 Unknown Rx Ondansetron [Zofran Odt] 4 mg PO TID PRN #9 tab.rapdis 01/19/18 Unknown Rx Nitrofurantoin Petroleum/M-Cryst 100 mg PO Q12HR #20 capsule 10/28/18 Unknown Rx [Macrobid CAP] Phenazopyridine [Pyridium] 200 mg PO BID PRN #10 tab 10/28/18 Unknown Rx ED Physical Exam - General Limitations: No Limitations General appearance: alert, in no apparent distress - Head Head exam: Present: atraumatic, normocephalic, normal inspection - Eye Eye exam: Present: normal appearance, PERRL - ENT ENT exam: Present: normal exam, normal orophraynx, mucous membranes moist - Neck Neck exam: Present: normal inspection, full ROM. Absent: tenderness, meningismus, lymphadenopathy, thyromegaly - Respiratory Respiratory exam: Present: normal lung sounds bilaterally - Cardiovascular Cardiovascular Exam: Present: regular rate, normal rhythm, normal heart sounds - GI/Abdominal GI/Abdominal exam: Present: soft, normal bowel sounds. Absent: distended, tenderness, guarding, rebound, rigid, organomegaly, mass, bruit, pulsatile mass, hernia - Extremities Exam Extremities exam: Present: normal inspection, full ROM, normal capillary refill. Absent: pedal edema, calf tenderness - Back Exam Back exam: Present: normal inspection, full ROM. Absent: tenderness, CVA tenderness (R), CVA tenderness (L), muscle spasm, paraspinal tenderness, vertebral tenderness - Neurological Exam Neurological exam: Present: alert, oriented X3, CN II-XII intact, normal gait, reflexes normal. Absent: abnormal gait, motor sensory deficit - Psychiatric Psychiatric exam: Present: normal mood - Skin Skin exam: Present: warm, intact, normal color ED Course Vital Signs 01/17/19 01/17/19 08:15 09:45 Temperature 98 F Pulse Rate 81 Respiratory 20 16 Rate Blood Pressure 110/70 O2 Sat by Pulse 100 Oximetry ED Medical Decision Making - Radiology Data Radiology results: image reviewed - Medical Decision Making Patient is 33 years old female with no significant past medical history except for arthritis. Patient presented to the ER complaining of lower back pain, abdominal pain, right hand pain and bilateral shoulder pain. Patient stated that she fell last night coming down a stair. Patient denied any loss of consciousness, neck pain, chest pain or any other extremity pain. Patient remained stable in the ER. X-ray of the right hand and lumbosacral spine is negative for acute finding. Patient found to have a UTI and treated with ciprofloxacin. Patient also advised to follow up with her primary care physician and to return to the ER if symptoms are not improved. Critical care attestation.: If time is entered above; I have spent that time in minutes in the direct care of this critically ill patient, excluding procedure time. ED Disposition Clinical Impression: Fall, Back pain, Contusion, UTI (urinary tract infection) Disposition: - TO HOME OR SELFCARE Is pt being admited?: No Condition: Stable Instructions: Fall Prevention for Older Adults (ED), Contusion in Adults (ED), Urinary Tract Infection in Women (ED) Referrals: POP GILLIS MD [Primary Care Provider] - 3-5 Days
--- NOTE | 2019-01-17 11:40 | XRay Report ---
LUMBOSACRAL SPINE, 3 VIEWS INDICATION: BACK INJURY. COMPARISON: None. IMPRESSION: Normal alignment. No significant discogenic DJD or facet arthropathy. No acute osseous or soft tissue abnormality. No change since 12/08/2017. Signer Name: Rasta Suarez Jr, MD Signed: 01/17/2019 11:36 AM Workstation Name: [id number]
--- NOTE | 2019-01-17 11:42 | XRay Report ---
RIGHT WRIST, 4 VIEWS INDICATION: Right wrist injury, fall on stairs. COMPARISON: None. IMPRESSION: No acute osseous or soft tissue abnormality. No significant DJD. Signer Name: Rasta Suarez Jr, MD Signed: 01/17/2019 11:37 AM Workstation Name: [id number]
== END 2019-01-17 11:48 | disposition home or self-care (01) ==
LOC: ED 08:08
DX: S30.0XXA Contusion of lower back and pelvis, initial encounter (principal); N39.0 Urinary tract infection, site not specified; M79.641 Pain in right hand; M25.511 Pain in right shoulder; M25.512 Pain in left shoulder; J45.909 Unspecified asthma, uncomplicated; Z91.013 Allergy to seafood; Z79.899 Other long term (current) drug therapy; Z79.1 Long term (current) use of non-steroidal anti-inflammatories (NSAID); Z86.2 Personal history of diseases of the blood and blood-forming organs and certain disorders involving the immune mechanism; Z98.890 Other specified postprocedural states; W10.8XXA Fall (on) (from) other stairs and steps, initial encounter; Y93.89 Activity, other specified; Y92.098 Other place in other non-institutional residence as the place of occurrence of the external cause; Y99.8 Other external cause status
CPT/HCPCS: 72100; 81001; 81025; 87086; 99284

== ENCOUNTER 2020-03-21 16:22 | Emergency (ER) | payer MEDICAID, OTHER ==
[2020-03-21 17:23] VITALS: BP 125/70
[2020-03-21] MEDS ORDERED: traMADol 50 MG TAB PO ONE (21:21)
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
[2020-03-21] MEDS ORDERED: ACETAMINOPHEN 500 MG TAB PO ONE (21:45)
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
[2020-03-21 23:39] LABS: HCG Qualitative,Urine Negative (Negative)
== END 2020-03-21 22:50 | disposition home or self-care (01) ==
LOC: ED 16:22
DX: S16.1XXA Strain of muscle, fascia and tendon at neck level, initial encounter (principal); S86.912A Strain of unspecified muscle(s) and tendon(s) at lower leg level, left leg, initial encounter; S56.311A Strain of extensor or abductor muscles, fascia and tendons of right thumb at forearm level, initial encounter; M19.91 Primary osteoarthritis, unspecified site; J45.909 Unspecified asthma, uncomplicated; Z98.890 Other specified postprocedural states; Z79.1 Long term (current) use of non-steroidal anti-inflammatories (NSAID); Z79.2 Long term (current) use of antibiotics; Z79.899 Other long term (current) drug therapy; Z91.013 Allergy to seafood; Z88.8 Allergy status to other drugs, medicaments and biological substances; V49.59XA Passenger injured in collision with other motor vehicles in traffic accident, initial encounter; Y93.89 Activity, other specified; Y92.410 Unspecified street and highway as the place of occurrence of the external cause; Y99.8 Other external cause status
CPT/HCPCS: 72040; 81025

== ENCOUNTER 2021-06-13 13:35 | Emergency (ER) | payer MEDICAID ==
[2021-06-13] MEDS ORDERED: KETOROLAC 60 MG/2 ML INJ IM ONE (14:39)
[2021-06-13 15:05] VITALS: BP 142/81
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
[2021-06-13 15:38] LABS: HCG Qualitative,Urine Negative (Negative)
--- NOTE | 2021-06-13 16:41 | XRay Report ---
XR spine lumbosacral 2-3V INDICATION / CLINICAL INFORMATION: back pain. COMPARISON: Lumbar spine from 01/17/2019. FINDINGS: BONES/JOINT(S): No acute fracture. Alignment is normal. Vertebral body heights and disc spaces are pr eserved. PARASPINAL SOFT TISSUES:No significant abnormality. ADDITIONAL FINDINGS: None. IMPRESSION: 1. No acute findings. Signer Name: Emmanuel Diana MD Signed: 06/13/2021 4:37 PM Workstation Name: [id number]
--- NOTE | 2021-06-13 16:42 | XRay Report ---
XR knee 1-2V LT INDICATION / CLINICAL INFORMATION: knee pain COMPARISON: 03/21/2020 FINDINGS: BONES / JOINT(S): No acute fracture or subluxation. Mild tricompartmental osteoarthritis. No signific ant joint effusion. SOFT TISSUES: No significant abnormality. ADDITIONAL FINDINGS: None. IMPRESSION: Mild osteoarthritis of the left knee. No acute process. Signer Name: Emmanuel Diana MD Signed: 06/13/2021 4:38 PM Workstation Name: [id number]
--- NOTE | 2021-06-13 16:43 | XRay Report ---
XR hand 2V RT INDICATION / CLINICAL INFORMATION: hand pain COMPARISON: 03/21/2020. FINDINGS: BONES / JOINT(S): No acute fracture or subluxation. No significant arthritis. SOFT TISSUES: No significant abnormality. ADDITIONAL FINDINGS: None. IMPRESSION: No acute osseous findings of the right hand. Signer Name: Emmanuel Diana MD Signed: 06/13/2021 4:38 PM Workstation Name: [id number]
== END 2021-06-13 17:17 | disposition home or self-care (01) ==
LOC: ED 13:35
DX: M17.12 Unilateral primary osteoarthritis, left knee (principal); M79.641 Pain in right hand; J45.909 Unspecified asthma, uncomplicated; Z04.1 Encounter for examination and observation following transport accident; Z88.1 Allergy status to other antibiotic agents; Z91.09 Other allergy status, other than to drugs and biological substances; Z98.890 Other specified postprocedural states; Z91.013 Allergy to seafood; Z79.899 Other long term (current) drug therapy; V89.2XXA Person injured in unspecified motor-vehicle accident, traffic, initial encounter; Y93.89 Activity, other specified; Y92.89 Other specified places as the place of occurrence of the external cause; Y99.8 Other external cause status
CPT/HCPCS: 72100; 73120; 73560; 81025; 96372; 99283; J1885

== ENCOUNTER 2021-08-26 17:17 | Emergency (ER) | payer MEDICAID, OTHER ==
[2021-08-26 19:30] VITALS: BP 119/66
[2021-08-26 20:28] LABS: Basophils % (Auto) 0.3 % (0.0-1.8); Eosinophils # (Auto) 0.3 K/mm3 (0.0-0.4); Eosinophils % (Auto) 2.6 % (0.0-4.3); Hematocrit 39.5 % (30.3-42.9); Hemoglobin 12.2 gm/dl (10.1-14.3); Lymphocytes # (Auto) 3.2 K/mm3 (1.2-5.4); Lymphocytes % (Auto) 25.4 % (13.4-35.0); Mean Corpuscular HGB Conc 31 % (30-34); Mean Corpuscular Volume 74 fl (79-97); Monocytes # (Auto) 0.7 K/mm3 (0.0-0.8); Monocytes % (Auto) 5.7 % (0.0-7.3); Platelet Count 502 K/mm3 (140-440); Red Blood Count 5.35 M/mm3 (3.65-5.03); Red Cell Distribution Width 18.7 % (13.2-15.2)
[2021-08-26 20:44] LABS: Alanine Aminotransferase 25 units/L (7-56); Albumin 4.7 g/dL (3.9-5); Blood Urea Nitrogen 7 mg/dL (7-17); Calcium 9.8 mg/dL (8.4-10.2); Hemolysis Index 12
[2021-08-26 20:45] LABS: BUN/Creatinine Ratio 14
--- NOTE | 2021-08-26 22:03 | Emergency Department Report ---
ED Recheck HPI - General Chief Complaint: Recheck/Abnormal Lab/Rx Stated Complaint: POTASSIUM TO HIGH Time Seen by Provider: 08/26/21 21:31 Source: patient Mode of arrival: Ambulatory Limitations: No Limitations - History of Present Illness Initial Comments: 36-year-old black female with no past medical history presents to the emergency department stating that her [employer] WORKER called her and told her that her potassium was elevated from her blood work on this past and she needed to come to the ER immediately. Patient denies chest pain, shortness of breath, dizziness, nausea, vomiting, and diaphoresis. She denies ever having a problem with any of her electrolytes and is not on her dialysis. Patient states that she has not had a menstrual cycle since January and she is concerned that she may be . MD Complaint: abnormal lab Returns Today for: CBOAL Symptoms Since Prior Visit: no new symptoms Context: called for abnorm lab res Associated Symptoms: denies: fever, chills, chest pain, shortness of breath, malaise, nasuea, abdominal pain - Related Data Home Medications Medication Instructions Recorded Confirmed Last Taken Meloxicam [Mobic] 15 mg PO BID 03/23/16 03/23/16 03/20/16 15 mg Previous Rx's Medication Instructions Recorded Last Taken Type traMADoL [Ultram] 50 mg PO Q4HR PRN #15 tablet 08/01/13 03/21/16 Rx 100 mg Ketorolac [Toradol] 10 mg PO Q6H PRN #20 tablet 03/23/16 Unknown Rx methOCARBAMOL [Robaxin TAB] 1,500 mg PO TID PRN #30 tab 03/23/16 Unknown Rx Cetirizine HCl [Zyrtec] 10 mg PO DAILY #30 tablet 06/28/17 Unknown Rx Ibuprofen 800 mg PO TID PRN #30 tablet 06/28/17 Unknown Rx Polymyxin B Sulf/Trimethoprim 1 - 2 drop OP Q4H #10 ml 06/28/17 Unknown Rx [Polytrim Eye Drops] Ibuprofen [Ibuprofen 800] 800 mg PO TID PRN #30 tablet 12/22/17 Unknown Rx Mupirocin [Bactroban 2% OINT] 1 applic TP TID 10 Days #1 tube 12/22/17 Unknown Rx Sulfamethoxazole/Trimethoprim 1 each PO 12 #20 tablet 07/25/18 Unknown Rx [Bactrim Ds Tablet] Cetirizine HCl [Zyrtec 10mg tab] 10 mg PO DAILY #30 tablet 01/19/18 Unknown Rx Fluticasone [Flonase] 1 spray NS QDAY #1 bottle 01/19/18 Unknown Rx Ondansetron [Zofran Odt] 4 mg PO TID PRN #9 tab.rapdis 01/19/18 Unknown Rx Nitrofurantoin Real/M-Cryst 100 mg PO Q12HR #20 capsule 10/28/18 Unknown Rx [Macrobid CAP] Phenazopyridine [Pyridium] 200 mg PO BID PRN #10 tab 10/28/18 Unknown Rx Ciprofloxacin HCl [Ciprofloxacin 500 mg PO Q12HR #14 tab 01/17/19 Unknown Rx TAB] Cyclobenzaprine HCl [Flexeril 5 MG 5 mg PO TID PRN #21 tab 01/17/19 Unknown Rx TAB] Naproxen [Naprosyn] 500 mg PO BID #14 tablet 01/17/19 Unknown Rx Acetaminophen [Tylenol] 1,000 mg PO Q6HR PRN #30 tablet 03/21/20 Unknown Rx Menthol/Camphor [[place] Spangler 1 applicatio TP QID PRN #1 tube 03/21/20 Unknown Rx Ointment] Cyclobenzaprine [Flexeril] 10 mg PO TID PRN 10 Days #30 tab 06/13/21 Unknown Rx Ibuprofen [Motrin] 800 mg PO Q8HR PRN 15 Days #30 06/13/21 Unknown Rx tablet Allergies Allergy/AdvReac Type Severity Reaction Status Date / Time doxycycline Allergy Rash Verified 10/28/18 13:16 tramadol [From Ultram] Allergy Dizziness Verified 03/21/20 21:43 seafood Allergy Shortness Uncoded 06/28/17 16:40 of Breath ED Review of Systems ROS: Stated complaint: POTASSIUM TO HIGH Other details as noted in HPI Comment: All other systems reviewed and negative Constitutional: denies: chills, fever ENT: denies: ear pain, congestion Respiratory: denies: cough, shortness of breath, SOB with exertion, SOB at rest Cardiovascular: denies: chest pain, palpitations, dyspnea on exertion, orthopnea, edema, syncope, paroxysmal nocturnal dyspnea Gastrointestinal: denies: abdominal pain, vomiting, diarrhea, hematemesis, melena, hematochezia Genitourinary: abnormal menses. denies: urgency, dysuria, frequency, hematuria, discharge, dyspareunia Neurological: denies: headache, weakness, numbness, paresthesias ED Past Medical Hx - Past Medical History Hx Arthritis: Yes Hx Asthma: Yes Additional medical history: anemia, Back pain, LILIANA. 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 carpal tunnel - Surgical History Additional Surgical History: ovarian cyst removed. biopsy of liver - Social History Smoking Status: Never Smoker Substance Use Type: None - Medications Home Medications: Home Medications Medication Instructions Recorded Confirmed Last Taken Type traMADoL [Ultram] 50 mg PO Q4HR PRN #15 tablet 08/01/13 03/23/16 03/21/16 Rx 100 mg Ketorolac [Toradol] 10 mg PO Q6H PRN #20 tablet 03/23/16 Unknown Rx Meloxicam [Mobic] 15 mg PO BID 03/23/16 03/23/16 03/20/16 History 15 mg methOCARBAMOL [Robaxin TAB] 1,500 mg PO TID PRN #30 tab 03/23/16 Unknown Rx Cetirizine HCl [Zyrtec] 10 mg PO DAILY #30 tablet 06/28/17 Unknown Rx Ibuprofen 800 mg PO TID PRN #30 tablet 06/28/17 Unknown Rx Polymyxin B Sulf/Trimethoprim 1 - 2 drop OP Q4H #10 ml 06/28/17 Unknown Rx [Polytrim Eye Drops] Ibuprofen [Ibuprofen 800] 800 mg PO TID PRN #30 tablet 12/22/17 Unknown Rx Mupirocin [Bactroban 2% OINT] 1 applic TP TID 10 Days #1 tube 12/22/17 Unknown Rx Sulfamethoxazole/Trimethoprim 1 each PO 12 #20 tablet 12/22/17 Unknown Rx [Bactrim Ds Tablet] Cetirizine HCl [Zyrtec 10mg tab] 10 mg PO DAILY #30 tablet 01/19/18 Unknown Rx Fluticasone [Flonase] 1 spray NS QDAY #1 bottle 01/19/18 Unknown Rx Ondansetron [Zofran Odt] 4 mg PO TID PRN #9 tab.rapdis 01/19/18 Unknown Rx Nitrofurantoin Real/M-Cryst 100 mg PO Q12HR #20 capsule 05/31/19 Unknown Rx [Macrobid CAP] Phenazopyridine [Pyridium] 200 mg PO BID PRN #10 tab 10/28/18 Unknown Rx Ciprofloxacin HCl [Ciprofloxacin 500 mg PO Q12HR #14 tab 01/17/19 Unknown Rx TAB] Cyclobenzaprine HCl [Flexeril 5 MG 5 mg PO TID PRN #21 tab 01/17/19 Unknown Rx TAB] Naproxen [Naprosyn] 500 mg PO BID #14 tablet 01/17/19 Unknown Rx Acetaminophen [Tylenol] 1,000 mg PO Q6HR PRN #30 tablet 03/21/20 Unknown Rx Menthol/Camphor [[place] Spangler 1 applicatio TP QID PRN #1 tube 03/21/20 Unknown Rx Ointment] Cyclobenzaprine [Flexeril] 10 mg PO TID PRN 10 Days #30 tab 06/13/21 Unknown Rx Ibuprofen [Motrin] 800 mg PO Q8HR PRN 15 Days #30 06/13/21 Unknown Rx tablet ED Physical Exam - General Limitations: No Limitations General appearance: alert, in no apparent distress - Head Head exam: Present: atraumatic, normocephalic - Eye Eye exam: Present: normal appearance. Absent: conjunctival injection - Neck Neck exam: Present: normal inspection. Absent: tenderness, lymphadenopathy - Respiratory Respiratory exam: Present: normal lung sounds bilaterally. Absent: respiratory distress, wheezes, rales, rhonchi, stridor, chest wall tenderness, accessory muscle use - Cardiovascular Cardiovascular Exam: Present: regular rate, normal heart sounds - GI/Abdominal GI/Abdominal exam: Present: soft, normal bowel sounds. Absent: distended, tenderness, guarding, rebound, rigid - Extremities Exam Extremities exam: Present: normal inspection, normal capillary refill. Absent: pedal edema, joint swelling, calf tenderness - Back Exam Back exam: Present: normal inspection. Absent: CVA tenderness (R), CVA tenderness (L) - Neurological Exam Neurological exam: Present: alert, oriented X3, normal gait. Absent: motor sensory deficit - Psychiatric Psychiatric exam: Present: normal affect, normal mood - Skin Skin exam: Present: warm, dry, intact, normal color ED Course Vital Signs 08/26/21 19:28 Temperature 98.1 F Pulse Rate 77 Respiratory 18 Rate Blood Pressure 119/66 O2 Sat by Pulse 100 Oximetry ED Recheck MDM - Differential Diagnosis Recheck of Abnormal Lab - Medical Decision Making 36-year-old black female with no past medical history presents to the emergency department stating that her [employer] WORKER called her and told her that her potassium was elevated from her blood work on this past and she needed to come to the ER immediately. Patient denies chest pain, shortness of breath, dizziness, nausea, vomiting, and diaphoresis. She denies ever having a problem with any of her electrolytes and is not on her dialysis. Patient states that she has not had a menstrual cycle since January and she is concerned that she may be . Potassium 4.6 and negative qualitative serum hCG. Patient continues to deny any symptoms. She is advised to follow-up with [employer] WORKER for further management and evaluation. He is advised to return to the emergency department with any concerning symptoms. She verbalized understanding of and agreement with plan of care. Critical care attestation.: If time is entered above; I have spent that time in minutes in the direct care of this critically ill patient, excluding procedure time. ED Disposition Clinical Impression: Routine lab draw, Amenorrhea Disposition: 01 HOME / SELF CARE / HOMELESS Is pt being admited?: No Does the pt Need Aspirin: No Condition: Stable Instructions: Secondary Amenorrhea, Preventive Care 21-39 Years Old, Female, Primary Amenorrhea Additional Instructions: Your potassium level today was 4.6. Follow-up with W[employer]ERSIDE WORKER for further evaluation and management. Referrals: VIET GONZALEZ MD [Staff Physician] - 3-5 Days Time of Disposition: 22:03
== END 2021-08-26 22:13 | disposition home or self-care (01) ==
LOC: ED 17:17
DX: N91.2 Amenorrhea, unspecified (principal); Z01.89 Encounter for other specified special examinations; J45.909 Unspecified asthma, uncomplicated
CPT/HCPCS: 36415; 80053; 84703; 85025; 99283

== ENCOUNTER 2021-10-21 12:58 | Emergency (ER) | payer MEDICAID ==
[2021-10-21 17:16] LABS: Bacteria,Urine 1+ /HPF (Negative); Bilirubin,Urine NEG (Negative); Blood,Urine NEG (Negative); Color,Urine Straw (Yellow); Protein,Urine <15 mg/dL mg/dL (Negative); RBC,Urine < 1.0 /HPF (0.0-6.0); Urobilinogen,Urine < 2.0 mg/dL (<2.0)
[2021-10-21 18:10] LABS: Alanine Aminotransferase 13 units/L (7-56); Albumin 4.5 g/dL (3.9-5); Blood Urea Nitrogen 7 mg/dL (7-17); Calcium 9.3 mg/dL (8.4-10.2); Hemolysis Index 2
[2021-10-21 18:13] LABS: BUN/Creatinine Ratio 18
[2021-10-21 18:15] LABS: Hematocrit 36.7 % (30.3-42.9); Hemoglobin 11.4 gm/dl (10.1-14.3); Mean Corpuscular HGB Conc 31 % (30-34); Mean Corpuscular Volume 75 fl (79-97); Platelet Count 492 K/mm3 (140-440); Red Blood Count 4.92 M/mm3 (3.65-5.03); Red Cell Distribution Width 17.6 % (13.2-15.2)
--- NOTE | 2021-10-21 19:30 | Cat Scan Report ---
CT ABDOMEN AND PELVIS WITHOUT CONTRAST INDICATION / CLINICAL INFORMATION: abdominal pain. TECHNIQUE: Axial CT images were obtained through the abdomen and pelvis without IV contrast. All CT scans at this location are performed using CT dose reduction for ALARA by means of automated exposure control. COMPARISON: None available. FINDINGS: LOWER CHEST: No significant abnormality LIVER: Mild hepatomegaly with mild steatosis. GALLBLADDER/BILIARY TREE: No significant abnormality PANCREAS: No significant abnormality SPLEEN: No significant abnormality ADRENALS: No significant abnormality RIGHT KIDNEY / URETER: No significant abnormality LEFT KIDNEY / URETER: No significant abnormality URINARY BLADDER: Bladder is partially decompressed, though grossly unremarkable. REPRODUCTIVE ORGANS: Uterus/adnexa are appropriate for age, given limitations of this noncontrast jesús dy. STOMACH / BOWEL: Small bowel is normal in caliber. The colon is unremarkable. The appendix is normal in caliber. LYMPH NODES: No significant adenopathy. VASCULATURE: No significant abnormality. OTHER: No free air, free fluid, or focal fluid collection is identified. SKELETAL SYSTEM: Mild bilateral sacroiliitis, right greater than left. No acute osseous findings. IMPRESSION: 1. No acute abnormality of the abdomen or pelvis. 2. Nonspecific mild bilateral sacroiliitis, slightly greater on the right. 3. Other incidental findings as above. Signer Name: Emmanuel Diana MD Signed: 10/21/2021 7:25 PM Workstation Name: [id number]
--- NOTE | 2021-10-21 19:45 | Emergency Department Report ---
ED Abdominal Pain HPI - General Chief Complaint: Abdominal Pain Stated Complaint: STOMACH/ABD PAIN Time Seen by Provider: 10/21/21 16:03 Source: patient Mode of arrival: Ambulatory Limitations: No Limitations - History of Present Illness Initial Comments: 36-year-old black female with a past medical history of rheumatoid arthritis and hypothyroidism presents to the emergency department for evaluation of left lower abdominal pain. She states that for the past several months every morning she wakes up with severe crampy type pain pain to her left lower quadrant. She states that sometimes it gets better throughout the day without any medication for the last couple weeks the pain has just been persistent. She states that pain is 10 out of 10 but she has not taken any medication for her symptoms. She denies fever, dysuria, nausea, vomiting, and vaginal discharge. She states that she has seen her primary care provider for the same complaint who completed urine, blood work, and ultrasound but patient states that nothing was found. MD Complaint: abdominal pain -: Gradual, month(s) (2-3) Location: LLQ Radiation: none Migration to: no migration Severity: severe Severity scale (0 -10): 10 Quality: aching Consistency: intermittent Associated Symptoms: denies: nausea, vomiting, diarrhea, fever, chills, dysuria, hematemesis, hematochezia, melena, hematuria, anorexia, syncope - Related Data LMP Date: 09/19/21 Home Medications Medication Instructions Recorded Confirmed Last Taken Meloxicam [Mobic] 15 mg PO BID 03/23/16 10/21/21 03/20/16 15 mg Allergies Allergy/AdvReac Type Severity Reaction Status Date / Time doxycycline Allergy Rash Verified 10/21/21 17:15 tramadol [From Ultram] Allergy Dizziness Verified 10/21/21 17:15 seafood Allergy Shortness Uncoded 10/21/21 17:15 of Breath ED Review of Systems ROS: Stated complaint: STOMACH/ABD PAIN Other details as noted in HPI Comment: All other systems reviewed and negative Constitutional: denies: fever, malaise, weakness Respiratory: denies: orthopnea, shortness of breath, SOB with exertion, SOB at rest, stridor, wheezing Cardiovascular: denies: chest pain, palpitations, dyspnea on exertion, orthopnea, edema, syncope, paroxysmal nocturnal dyspnea Gastrointestinal: abdominal pain. denies: nausea, vomiting, diarrhea, hematemesis, melena, hematochezia Genitourinary: denies: urgency, dysuria, frequency, hematuria, discharge Musculoskeletal: denies: back pain Neurological: denies: headache, weakness ED Past Medical Hx - Past Medical History Hx Arthritis: Yes Hx Asthma: Yes Additional medical history: anemia, Back pain, LILIANA. 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 carpal tunnel - Surgical History Additional Surgical History: ovarian cyst removed. biopsy of liver - Social History Smoking Status: Never Smoker Substance Use Type: None - Medications Home Medications: Home Medications Medication Instructions Recorded Confirmed Last Taken Type Meloxicam [Mobic] 15 mg PO BID 03/23/16 10/21/21 03/20/16 History 15 mg ED Physical Exam - General Limitations: No Limitations General appearance: alert, in no apparent distress - Head Head exam: Present: atraumatic, normocephalic - Eye Eye exam: Present: normal appearance. Absent: conjunctival injection - Neck Neck exam: Present: normal inspection, full ROM. Absent: tenderness, lymphadenopathy, thyromegaly - Respiratory Respiratory exam: Present: normal lung sounds bilaterally. Absent: respiratory distress, wheezes, rales, rhonchi, stridor, chest wall tenderness - Cardiovascular Cardiovascular Exam: Present: regular rate, normal heart sounds - GI/Abdominal GI/Abdominal exam: Present: soft, tenderness (Left lower quadrant), normal bowel sounds. Absent: distended, guarding, rebound, rigid - Extremities Exam Extremities exam: Present: normal inspection, normal capillary refill. Absent: tenderness, pedal edema, joint swelling, calf tenderness - Back Exam Back exam: Present: normal inspection. Absent: CVA tenderness (R), CVA tenderness (L), paraspinal tenderness, vertebral tenderness - Neurological Exam Neurological exam: Present: alert, oriented X3, normal gait - Psychiatric Psychiatric exam: Present: normal affect, normal mood - Skin Skin exam: Present: warm, dry, intact, normal color ED Course Vital Signs 10/21/21 10/21/21 13:22 19:50 Temperature 98.3 F Pulse Rate 83 77 Respiratory 99 H 12 Rate Blood Pressure 138/83 132/80 [Right] O2 Sat by Pulse 99 100 Oximetry ED Medical Decision Making - Lab Data Result diagrams: 10/21/21 17:21 10/21/21 17:21 - Radiology Data Radiology results: report reviewed CT abdomen pelvis without contrast: FINDINGS: LOWER CHEST: No significant abnormality LIVER: Mild hepatomegaly with mild steatosis. GALLBLADDER/BILIARY TREE: No significant abnormality PANCREAS: No significant abnormality SPLEEN: No significant abnormality ADRENALS: No significant abnormality RIGHT KIDNEY / URETER: No significant abnormality LEFT KIDNEY / URETER: No significant abnormality URINARY BLADDER: Bladder is partially decompressed, though grossly unremarkable. REPRODUCTIVE ORGANS: Uterus/adnexa are appropriate for age, given limitations of this noncontrast study. STOMACH / BOWEL: Small bowel is normal in caliber. The colon is unremarkable. The appendix is normal in caliber. LYMPH NODES: No significant adenopathy. VASCULATURE: No significant abnormality. OTHER: No free air, free fluid, or focal fluid collection is identified. SKELETAL SYSTEM: Mild bilateral sacroiliitis, right greater than left. No acute osseous findings. IMPRESSION: 1. No acute abnormality of the abdomen or pelvis. 2. Nonspecific mild bilateral sacroiliitis, slightly greater on the right. 3. Other incidental findings as above. - Medical Decision Making 36-year-old black female with a past medical history of rheumatoid arthritis and hypothyroidism presents to the emergency department for evaluation of left lower abdominal pain. She states that for the past several months every morning she wakes up with severe crampy type pain pain to her left lower quadrant. She states that sometimes it gets better throughout the day without any medication for the last couple weeks the pain has just been persistent. She states that pain is 10 out of 10 but she has not taken any medication for her symptoms. She denies fever, dysuria, nausea, vomiting, and vaginal discharge. She states that she has seen her primary care provider for the same complaint who completed urine, blood work, and ultrasound but patient states that nothing was found. No gross abnormalities noted on assessment or labs. UA negative for urinary tract infection. CT scan without any acute abnormalities noted. Patient will be discharged home to follow-up with primary care provider and/or GI for further evaluation and management. She is advised to return to the emergency department for any concerning symptoms. She verbalizes understanding of and agreement with plan of care. Critical care attestation.: If time is entered above; I have spent that time in minutes in the direct care of this critically ill patient, excluding procedure time. ED Disposition Clinical Impression: Abdominal pain Qualifiers: Abdominal location: generalized Qualified Code(s): R10.84 - Generalized abdominal pain Disposition: 01 HOME / SELF CARE / HOMELESS Is pt being admited?: No Does the pt Need Aspirin: No Condition: Stable Instructions: Abdominal Pain, Adult, [id number], Abdominal Pain (ED) Additional Instructions: Follow-up with primary care provider or stomach doctor for further evaluation and management. Return to the emergency department as needed. Referrals: KALINA ARIAS MD [Staff Physician] - 3-5 Days LOU COX MD [Staff Physician] - 3-5 Days Forms: Work/School Release Form(ED) Time of Disposition: 19:44
[2021-10-21 19:51] VITALS: BP 132/80
== END 2021-10-21 19:51 | disposition home or self-care (01) ==
LOC: ED 12:58
DX: R10.32 Left lower quadrant pain (principal); J45.909 Unspecified asthma, uncomplicated; M19.90 Unspecified osteoarthritis, unspecified site; D64.9 Anemia, unspecified; Z98.890 Other specified postprocedural states; Z88.1 Allergy status to other antibiotic agents; Z88.5 Allergy status to narcotic agent; Z91.013 Allergy to seafood
CPT/HCPCS: 36415; 74176; 80053; 81001; 83690; 84703; 85027; 99284

== ENCOUNTER 2021-12-07 14:37 | Emergency (ER) | payer MEDICAID ==
[2021-12-07 16:17] LABS: Basophils % (Auto) 0.3 % (0.0-1.8); Eosinophils # (Auto) 0.1 K/mm3 (0.0-0.4); Hematocrit 37.1 % (30.3-42.9); Hemoglobin 11.7 gm/dl (10.1-14.3); Lymphocytes % (Auto) 19.8 % (13.4-35.0); Mean Corpuscular HGB Conc 32 % (30-34); Mean Corpuscular Volume 74 fl (79-97); Monocytes # (Auto) 0.6 K/mm3 (0.0-0.8); Monocytes % (Auto) 5.7 % (0.0-7.3); Platelet Count 556 K/mm3 (140-440); Red Blood Count 4.99 M/mm3 (3.65-5.03); Red Cell Distribution Width 17.5 % (13.2-15.2)
[2021-12-07 16:38] LABS: Alanine Aminotransferase 19 units/L (7-56); Blood Urea Nitrogen 8 mg/dL (7-17); Calcium 9.9 mg/dL (8.4-10.2); Hemolysis Index 19
[2021-12-07 16:40] LABS: BUN/Creatinine Ratio 16
[2021-12-07 21:35] LABS: Bilirubin,Urine NEG (Negative); Blood,Urine NEG (Negative); Color,Urine Yellow (Yellow); Urobilinogen,Urine < 2.0 mg/dL (<2.0)
[2021-12-07 21:38] LABS: HCG Qualitative,Urine Negative (Negative)
[2021-12-07 21:47] LABS: Bacteria,Urine 2+ /HPF (Negative); Mucus,Urine 1+ /HPF
[2021-12-07] MEDS: ONDANSETRON 4 MG/2 ML INJ IV ONE (22:22)
[2021-12-07] MEDS: MORPHINE 4 MG/1 ML INJ IV ONE (22:22)
--- NOTE | 2021-12-07 23:26 | Cat Scan Report ---
CT ABDOMEN AND PELVIS WITH CONTRAST INDICATION / CLINICAL INFORMATION: abdominal pain. TECHNIQUE: Axial CT images were obtained through the abdomen and pelvis after Omnipaque 300, 100 cc I V contrast. All CT scans at this location are performed using CT dose reduction for ALARA by means o f automated exposure control. COMPARISON: 10/21/2021. FINDINGS: LOWER CHEST: No significant abnormality. LIVER: No significant abnormality. GALLBLADDER: No significant abnormality. BILE DUCTS: No significant abnormality. PANCREAS: No significant abnormality. SPLEEN: No significant abnormality. ADRENALS: No significant abnormality. RIGHT KIDNEY / URETER: Small cyst versus localized calyceal dilatation upper pole. LEFT KIDNEY / URETER: No significant abnormality. STOMACH / SMALL BOWEL: No significant abnormality. COLON: No significant abnormality. APPENDIX: November. PERITONEUM: No free fluid. No free air. No fluid collection. LYMPH NODES: No significant adenopathy. VASCULAR STRUCTURES: No significant abnormality. URINARY BLADDER: No significant abnormality. REPRODUCTIVE ORGANS: No significant abnormality. ADDITIONAL FINDINGS: None. SKELETAL SYSTEM: No significant abnormality. IMPRESSION: 1. Small cyst versus localized calyceal dilatation remains at the upper pole the right kidney. 2. Negative for obstruction or localized inflammation. Signer Name: Tae Chopra MD Signed: 12/07/2021 11:21 PM Workstation Name: [id number]
--- NOTE | 2021-12-07 23:41 | Emergency Department Report ---
ED Abdominal Pain HPI - General Chief Complaint: Urogenital-Female Stated Complaint: SEVERE ABD PAIN/VOMITING Source: patient Mode of arrival: Ambulatory Limitations: No Limitations - History of Present Illness Initial Comments: Patient is a 36-year-old -Green[place] female with a history of morbid obesity, asthma, chronic osteoarthritis and chronic back pain who presents to the ED with complaint of acute onset persistent diffuse low abdominal pain for the last 2 weeks, with nausea and vomiting, and worse in the last 3 days. Patient states that she was previously treated for acute urinary tract infection at another hospital about a month ago and completed a course of antibiotics. Patient states that the pain that she currently experiences is similar to the pain she experienced when she was admitted to that particular hospital for UTI. Patient denies dizziness, syncope, chest pain or shortness of breath, diarrhea, dysuria, urinary frequency and urgency or vaginal bleeding and vaginal discharge, heavy lifting or lower back pain. MD Complaint: abdominal pain (Diffuse lower abdominal pain), other (nausea and vomiting) -: Gradual, week(s) (2) Location: LLQ, RLQ, suprapubic Radiation: LLQ, RLQ, suprapubic Migration to: no migration Severity scale (0 -10): 8 Quality: aching, sharp Consistency: constant Improves With: nothing Worsens With: movement Associated Symptoms: denies other symptoms, nausea, vomiting. denies: diarrhea, fever, chills, constipation, hematemesis, hematochezia, melena, hematuria, anorexia - Related Data LMP (females 10-50): 3 weeks Home Medications Medication Instructions Recorded Confirmed Last Taken Meloxicam [Mobic] 15 mg PO BID 03/23/16 10/21/21 03/20/16 15 mg Previous Rx's Medication Instructions Recorded Last Taken Type Acetaminophen/Codeine [Tylenol 1 tab PO Q6H PRN #12 tab 12/07/21 Unknown Rx /Codeine # 3 tab] Docusate Sodium [Colace CAP] 100 mg PO BID PRN #60 capsule 12/07/21 Unknown Rx Ibuprofen [Motrin] 800 mg PO Q8HR PRN #30 tablet 12/07/21 Unknown Rx Ondansetron [Zofran Odt] 4 mg PO Q8HR PRN #20 tab.rapdis 12/07/21 Unknown Rx cephALEXin [Keflex] 500 mg PO Q8HR #30 cap 12/07/21 Unknown Rx Allergies Allergy/AdvReac Type Severity Reaction Status Date / Time doxycycline Allergy Rash Verified 10/21/21 17:15 tramadol [From Ultram] Allergy Dizziness Verified 10/21/21 17:15 seafood Allergy Shortness Uncoded 10/21/21 17:15 of Breath ED Review of Systems ROS: Stated complaint: SEVERE ABD PAIN/VOMITING Other details as noted in HPI Constitutional: denies: chills, fever Eyes: denies: eye pain, eye discharge, vision change ENT: denies: ear pain, throat pain Respiratory: denies: cough, shortness of breath, wheezing Cardiovascular: denies: chest pain, palpitations Endocrine: no symptoms reported Gastrointestinal: abdominal pain, nausea, vomiting. denies: diarrhea Genitourinary: denies: urgency, dysuria, discharge Musculoskeletal: denies: back pain, joint swelling, arthralgia Skin: denies: rash, lesions Neurological: denies: headache, weakness, paresthesias Psychiatric: denies: anxiety, depression Hematological/Lymphatic: denies: easy bleeding, easy bruising ED Past Medical Hx - Past Medical History Hx Arthritis: Yes Hx Asthma: Yes Additional medical history: anemia, Back pain, LILIANA. 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 carpal tunnel - Surgical History Additional Surgical History: ovarian cyst removed. biopsy of liver - Social History Smoking Status: Never Smoker - Medications Home Medications: Home Medications Medication Instructions Recorded Confirmed Last Taken Type Meloxicam [Mobic] 15 mg PO BID 03/23/16 10/21/21 03/20/16 History 15 mg Acetaminophen/Codeine [Tylenol 1 tab PO Q6H PRN #12 tab 12/07/21 Unknown Rx /Codeine # 3 tab] Docusate Sodium [Colace CAP] 100 mg PO BID PRN #60 capsule 12/07/21 Unknown Rx Ibuprofen [Motrin] 800 mg PO Q8HR PRN #30 tablet 12/07/21 Unknown Rx Ondansetron [Zofran Odt] 4 mg PO Q8HR PRN #20 tab.rapdis 12/07/21 Unknown Rx cephALEXin [Keflex] 500 mg PO Q8HR #30 cap 12/07/21 Unknown Rx ED Physical Exam - General Limitations: No Limitations General appearance: alert, in no apparent distress - Head Head exam: Present: atraumatic, normocephalic, normal inspection - Eye Eye exam: Present: normal appearance, PERRL, EOMI Pupils: Present: normal accommodation - ENT ENT exam: Present: normal exam, normal orophraynx, mucous membranes moist, TM's normal bilaterally, normal external ear exam - Neck Neck exam: Present: normal inspection, full ROM. Absent: tenderness - Respiratory Respiratory exam: Present: normal lung sounds bilaterally. Absent: respiratory distress, wheezes, rales, rhonchi, chest wall tenderness, accessory muscle use, decreased breath sounds, prolonged expiratory - Cardiovascular Cardiovascular Exam: Present: regular rate, normal rhythm, normal heart sounds. Absent: systolic murmur, diastolic murmur, rubs, gallop - GI/Abdominal GI/Abdominal exam: Present: soft, tenderness (palpable diffuse lower abdominal tenderness), normal bowel sounds. Absent: guarding, rebound, hyperactive bowel sounds, hypoactive bowel sounds, organomegaly, mass - Bi-manual exam: Present: other (pelvic exam deferred) - Extremities Exam Extremities exam: Present: normal inspection, full ROM, normal capillary refill. Absent: tenderness - Back Exam Back exam: Present: normal inspection, full ROM. Absent: tenderness, CVA tenderness (R), CVA tenderness (L), muscle spasm, paraspinal tenderness, vertebral tenderness - Neurological Exam Neurological exam: Present: alert, oriented X3, CN II-XII intact, normal gait, reflexes normal - Psychiatric Psychiatric exam: Present: normal affect, normal mood - Skin Skin exam: Present: warm, dry, intact, normal color. Absent: rash ED Course Vital Signs 12/07/21 15:35 Temperature 97.9 F Pulse Rate 75 Respiratory 18 Rate Blood Pressure 130/70 O2 Sat by Pulse 99 Oximetry ED Medical Decision Making - Lab Data Result diagrams: 12/07/21 Unknown 12/07/21 Unknown - Radiology Data Radiology results: report reviewed, image reviewed [facility] [address] [place] [address] Cat Scan Report Signed Patient: VIRGILIO BABCOCK MR#: [id number] : 1985 Acct:[id number] Age/Sex: 36 / F ADM Date: 12/07/21 Loc: ED Attending Dr: Ordering Physician: PATRICIO LAUREANO Date of Service: 12/07/21 Procedure(s): CT abdomen pelvis w con Accession Number(s): [id number] cc: PATRICIO LAUREANO CT ABDOMEN AND PELVIS WITH CONTRAST INDICATION / CLINICAL INFORMATION: abdominal pain. TECHNIQUE: Axial CT images were obtained through the abdomen and pelvis after Omnipaque 300, [address] scans at this location are performed using CT dose reduction for ALARA by means of automated exposure control. COMPARISON: 10/21/2021. FINDINGS: LOWER CHEST: No significant abnormality. LIVER: No significant abnormality. GALLBLADDER: No significant abnormality. BILE DUCTS: No significant abnormality. PANCREAS: No significant abnormality. SPLEEN: No significant abnormality. ADRENALS: No significant abnormality. RIGHT KIDNEY / URETER: Small cyst versus localized calyceal dilatation upper pole. LEFT KIDNEY / URETER: No significant abnormality. STOMACH / SMALL BOWEL: No significant abnormality. COLON: No significant abnormality. APPENDIX: November. PERITONEUM: No free fluid. No free air. No fluid collection. LYMPH NODES: No significant adenopathy. VASCULAR STRUCTURES: No significant abnormality. URINARY BLADDER: No significant abnormality. REPRODUCTIVE ORGANS: No significant abnormality. ADDITIONAL FINDINGS: None. SKELETAL SYSTEM: No significant abnormality. IMPRESSION: 1. Small cyst versus localized calyceal dilatation remains at the upper pole the right kidney. 2. Negative for obstruction or localized inflammation. Signer Name: Tae Chopra MD Signed: 12/07/2021 11:21 PM Workstation Name: [id number] Transcribed By: ES Dictated By: Tae Chopra MD Electronically Authenticated By: Tae Chopra MD Signed Date/Time: 12/07/212320 DD/ 16 TD/TT: - Medical Decision Making This is a 36-year-old -[place] female with a history of morbid obesity, asthma, chronic osteoarthritis and chronic back pain who presents to the ED with complaint of acute onset persistent diffuse low abdominal pain for the last 2 weeks, with nausea and vomiting, and worse in the last 3 days. Patient states that she was previously treated for acute urinary tract infection at another hospital about a month ago and completed a course of antibiotics. Patient states that the pain that she currently experiences is similar to the pain she experienced when she was admitted to that particular hospital for UTI. In the ED, patient is alert and oriented x3 and is not in any distress. Patient is he modynamically stable. Patient was treated for pain in the ED and all lab test results were reviewed and are all nonactionable except for significant bacteriuria in the urinalysis. Abdomen pelvis CT scan with IV contrast showed no acute abnormalities, no small bowel obstruction or a localized inflammation but an incidental finding of a small cyst versus localized calyceal dilatation remains at the upper pole the right kidney. Therefore take medications as advised, drink plenty of fluids and follow-up with your primary care physician in 7 to 10 days for reevaluation. Return to the ED immediately if symptoms get worse. - Differential Diagnosis UTI; Kidney stones; ; appendicitis; colitis; ovarian cyst Critical care attestation.: If time is entered above; I have spent that time in minutes in the direct care of this critically ill patient, excluding procedure time. ED Disposition Clinical Impression: Abdominal pain in female patient, Nausea and vomiting in adult patient, Bacteriuria Disposition: HOME / SELF CARE / HOMELESS Is pt being admited?: No Does the pt Need Aspirin: No Condition: Stable Instructions: Abdominal Pain, Adult, [id number], Nausea and Vomiting, Adult, [id number] Additional Instructions: All lab test results were reviewed and are all nonactionable except for significant bacteriuria in urinalysis. Abdomen pelvis CT scan with IV contrast showed no acute abnormalities, no small bowel obstruction but an incidental finding of a small cyst versus localized calyceal dilatation remains at the upper pole the right kidney. Therefore take medication with food, drink plenty of fluids, follow-up with your primary care physician in 5 to 7 days for reevaluation. Return to the ED immediately if symptoms get worse Prescriptions: Docusate Sodium [Colace CAP] 100 mg PO BID PRN #60 capsule PRN Reason: Constipation cephALEXin [Keflex] 500 mg PO Q8HR #30 cap Ibuprofen [Motrin] 800 mg PO Q8HR PRN #30 tablet PRN Reason: Pain , Severe (7-10) Acetaminophen/Codeine [Tylenol /Codeine # 3 tab] 1 tab PO Q6H PRN #12 tab PRN Reason: Pain , Severe (7-10) Ondansetron [Zofran Odt] 4 mg PO Q8HR PRN #20 tab.rapdis PRN Reason: Nausea Referrals: POP GILLIS MD [Primary Care Provider] - 3-5 Days Time of Disposition: 23:41 Print Language: MACEDONIAN
[2021-12-07] MEDS: PROCHLORPERAZINE EDISYLATE 10 MG/2 ML VIAL IV ONE (23:51)
[2021-12-07] MEDS: KETOROLAC 30 MG/1 ML INJ IV ONE (23:51)
[2021-12-08 00:28] VITALS: BP 131/73
== END 2021-12-08 00:17 | disposition home or self-care (01) ==
LOC: ED 14:37
DX: R10.30 Lower abdominal pain, unspecified (principal); R11.2 Nausea with vomiting, unspecified; R82.71 Bacteriuria; M19.90 Unspecified osteoarthritis, unspecified site; J45.909 Unspecified asthma, uncomplicated; Z91.013 Allergy to seafood; Z91.09 Other allergy status, other than to drugs and biological substances; Z79.899 Other long term (current) drug therapy
CPT/HCPCS: 36415; 74177; 80053; 81001; 81025; 84703; 85025; 96374; 96375; 99284; J0780; J1885; J2270; J2405; Q9967

== ENCOUNTER 2022-01-16 20:05 | Emergency (ER) | payer OTHER, MEDICAID ==
[2022-01-16] MEDS ORDERED: KETOROLAC 60 MG/2 ML INJ IM STA (23:09)
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
[2022-01-17 07:36] VITALS: BP 135/78
== END 2022-01-17 01:45 | disposition home or self-care (01) ==
LOC: ED 20:05
DX: S13.4XXA Sprain of ligaments of cervical spine, initial encounter (principal); V89.2XXA Person injured in unspecified motor-vehicle accident, traffic, initial encounter; Y93.89 Activity, other specified; Y92.89 Other specified places as the place of occurrence of the external cause; Y99.8 Other external cause status; J45.909 Unspecified asthma, uncomplicated; Z91.013 Allergy to seafood; Z88.8 Allergy status to other drugs, medicaments and biological substances
CPT/HCPCS: 72040; 99282; 99283